=== PATIENT | male | born 1960 | race Caucasian/White ===

== ENCOUNTER 2022-02-14 08:55 | Outpatient (CLI) | payer MEDICARE, SELFPAY ==
--- NOTE | ~2022-02-14 | PE_ITS ---
EXAMINATION: PET skull to mid thigh DATE: 02/14/2022 10:57 INDICATION: Solitary nodule of lung. TECHNIQUE: Blood glucose level was 107 mg/dL. 11.286 mCi of 18-fluorodeoxyglucose (18-FDG) was admini stered i.v. Low dose computed tomography (CT) images were acquired from the base of the brain to the proximal thighs for attenuation correction and anatomic localization. Automated exposure control was employed. Dose-length product (DLP) was 1259 mGy-cm. Positron emission tomography (PET) images were a cquired in the same distribution. COMPARISON: None FINDINGS: Head/neck: There is increased activity in the oral cavity, pharynx, glottis, and major salivary gland s without abnormal CT correlate, likely physiologic. There are no pathologically enlarged lymph nodes . There is increased activity in bone marrow. Chest: There is mild atelectasis bilaterally. There is mild scarring at right lung base without incre ased activity. There are changes of wedge resection in superior segment right lower lobe. Calcified p ulmonary nodules and calcified hilar and mediastinal lymph nodes are consistent with old adenomatous disease. No pleural effusion. The heart size is normal. No pericardial effusion. There are old healed left rib fractures. There is increased activity in bone marrow. Abdomen/pelvis/proximal thighs: The liver and spleen are normal. There are changes of cholecystectomy . The pancreas, adrenal glands, and kidneys are normal. There is prominent fat in the inguinal canals that may be hernias. There are no dilated loops of bowel. There are no pathologically enlarged lymph nodes. There is no free intraperitoneal fluid. There is increased activity in bone marrow. IMPRESSION: 1. No specific evidence of malignancy. 2. Diffusely increased activity in bone marrow without abnormal CT correlate, likely bone marrow stim ulation. Reviewed, dictated and finalized at location A. OMINIUM PROPERTY MANAGER IMPRESSION: 1. No specific evidence of malignancy. 2. Diffusely increased activity in bone marrow without abnormal CT correlate, mike schroederely bone marrow stimulation.
[2022-02-14 10:03] LABS: Glucose Point of Care 107 mg/dl (65-105)
== END 2022-02-14 08:56 | disposition home or self-care (01) ==
PROVIDERS: PCP Internal Medicine; Visit Provider Nurse Practitioner
DX: R91.1 Solitary pulmonary nodule (principal)
CPT/HCPCS: 78815; A9552

== ENCOUNTER 2022-03-15 16:58 | Outpatient (CLI) | payer MEDICARE, SELFPAY ==
[2022-03-15 18:20] LABS: Basophils Percent Auto 0.7 % (0.2-1.2); Eosinophils Absolute Auto 0.1 K/mm3 (0-0.3); Eosinophils Percent Auto 1.6 % (0-4.4); Hematocrit 43.7 % (42.0-52.0); Hemoglobin 13.7 g/dL (14.0-18.0); Immature Granulocyte Absolute 0.04 K/mm3 (0.00-0.031); Immature Granulocyte Percent A 0.7 % (0-0.5); Lymphocytes Absolute Auto 1.81 K/mm3 (0.9-3.2); Lymphocytes Percent Auto 29.6 % (18.3-44.2); Mean Corpuscular HGB Conc 31.4 g/dl (32-36); Mean Corpuscular Hemoglobin 28.8 pg (26-34); Mean Platelet Volume 9.9 fl (7.4-10.4); Monocytes Absolute Auto 0.7 K/mm3 (0.1-0.6); Neutrophils Absolute Auto 3.5 K/mm3 (1.3-6.7); Neutrophils Percent Auto 56.4 % (45.5-73.1); Platelet Count Result 342 k/mm3 (150-375); Red Blood Count 4.75 M/mm3 (4.6-6.20); Red Cell Distribution Width 14.2 % (11.5-14.5); White Blood Count 6.1 K/mm3 (4.5-10.0)
[2022-03-15 18:35] LABS: Alanine Aminotransferase 33 U/L (6-50); Albumin Level 3.8 g/dL (3.5-5.1); Alkaline Phosphatase 72 U/L (38-126); Anion Gap 6 mmol/L (8-16); Aspartate Amino Transferase 26 U/L (17-59); Bilirubin,Total 0.5 mg/dL (0.2-1.3); Blood Urea Nitrogen 16 mg/dL (9-20); CRP 0.6 mg/dL (<1.0); Calcium 8.9 mg/dL (8.4-10.2); Carbon Dioxide 28 mmol/L (22-30); Chloride 106 mmol/L (98-107); Estimated Glomerular Filt Rate > 60; Glucose 71 mg/dL (65-110); Potassium 4.3 mmol/L (3.4-5.0); Sodium 140 mmol/L (137-145)
== END 2022-03-15 16:59 | disposition home or self-care (01) ==
PROVIDERS: PCP Internal Medicine; Visit Provider Internal Medicine Hematology & Oncology
DX: R89.8 Other abnormal findings in specimens from other organs, systems and tissues (principal)
CPT/HCPCS: 36415; 80053; 85025; 86140; 88184; 88185

== ENCOUNTER 2022-07-21 11:09 | Outpatient (CLI) | payer MEDICARE, SELFPAY ==
[2022-07-21 11:28] LABS: Basophils Percent Auto 0.8 % (0.2-1.2); Eosinophils Absolute Auto 0.1 K/mm3 (0-0.3); Eosinophils Percent Auto 1.9 % (0-4.4); Hemoglobin 13.2 g/dL (14.0-18.0); Immature Granulocyte Absolute 0.01 K/mm3 (0.00-0.031); Immature Granulocyte Percent A 0.2 % (0-0.5); Lymphocytes Absolute Auto 1.17 K/mm3 (0.9-3.2); Lymphocytes Percent Auto 22.5 % (18.3-44.2); Mean Corpuscular HGB Conc 32.2 g/dl (32-36); Mean Corpuscular Hemoglobin 29.3 pg (26-34); Mean Corpuscular Volume 91.1 fl (80-100); Monocytes Absolute Auto 0.4 K/mm3 (0.1-0.6); Monocytes Percent Auto 8.3 % (2.6-8.5); Neutrophils Absolute Auto 3.5 K/mm3 (1.3-6.7); Neutrophils Percent Auto 66.3 % (45.5-73.1); Platelet Count Result 278 k/mm3 (150-375); Red Cell Distribution Width 13.7 % (11.5-14.5); White Blood Count 5.2 K/mm3 (4.5-10.0)
[2022-07-21 12:19] LABS: Alanine Aminotransferase 26 U/L (6-50); Alkaline Phosphatase 76 U/L (38-126); Anion Gap 4 mmol/L (8-16); Aspartate Amino Transferase 22 U/L (17-59); Bilirubin,Total 0.5 mg/dL (0.2-1.3); Blood Urea Nitrogen 15 mg/dL (9-20); Calcium 8.5 mg/dL (8.4-10.2); Carbon Dioxide 29 mmol/L (22-30); Chloride 104 mmol/L (98-107); Estimated Glomerular Filt Rate > 60; Glucose 95 mg/dL (65-110); Potassium 4.4 mmol/L (3.4-5.0); Sodium 137 mmol/L (137-145)
[2022-07-27 16:12] LABS: BCR/abl Prior Result Not Given
[2022-07-27 16:57] LABS: BCR/abl P190 Not Detected; BCR/abl P210 Not Detected
[2022-07-27 16:58] LABS: BCR/abl P190 Chg YES; BCR/abl P210 Chg YES
== END 2022-07-21 11:10 | disposition home or self-care (01) ==
LOC: ANHLAB 11:11
PROVIDERS: PCP Internal Medicine; Visit Provider Internal Medicine Hematology & Oncology
DX: R89.8 Other abnormal findings in specimens from other organs, systems and tissues (principal)
CPT/HCPCS: 36415; 80053; 81206; 81207; 85025

== ENCOUNTER 2022-08-04 09:10 | Outpatient (CLI) | payer MEDICARE, SELFPAY ==
--- NOTE | ~2022-08-04 | CT_ITS ---
CT Scan of the Chest without Contrast: Clinical Indication: Solitary pulmonary nodule Technique: Contiguous sections were acquired throughout the chest without intravenous contrast. Dose reduction technique was used on this scan by utilizing automated exposure control and iterative recon struction technique. The dose-length product (DLP) was 569.87 mGy-cm. Findings: There is no evidence of any significant mediastinal, hilar or axillary lymphadenopathy. The mediastin al soft tissues appear normal. There is no evidence of pleural or pericardial effusion. There is no evidence of prior partial right lung resection with postoperative scarring. No suspicious pulmonary nodules identified. Images through the upper abdomen reveal no abnormalities. Chronic left rib fracture full result prese nt. Impression: No suspicious pulmonary nodule. Postoperative change in the right lung. Reviewed, dictated and finalized at location . Impression: No suspicious pulmonary nodule. Postoperative change in the right lung.
== END 2022-08-04 09:11 | disposition home or self-care (01) ==
PROVIDERS: PCP Internal Medicine; Visit Provider Nurse Practitioner
DX: R91.1 Solitary pulmonary nodule (principal); Z98.890 Other specified postprocedural states
CPT/HCPCS: 71250

== ENCOUNTER 2023-01-19 10:04 | Outpatient (CLI) | payer MEDICARE, SELFPAY ==
[2023-01-19 10:16] LABS: Basophils Absolute Auto 0.1 K/mm3 (0.0-0.1); Basophils Percent Auto 0.9 % (0.2-1.2); Eosinophils Absolute Auto 0.1 K/mm3 (0-0.3); Eosinophils Percent Auto 1.2 % (0-4.4); Hematocrit 41.9 % (42.0-52.0); Hemoglobin 13.5 g/dL (14.0-18.0); Immature Granulocyte Absolute 0.02 K/mm3 (0.00-0.031); Immature Granulocyte Percent A 0.3 % (0-0.5); Lymphocytes Percent Auto 20.9 % (18.3-44.2); Mean Corpuscular HGB Conc 32.2 g/dl (32-36); Mean Corpuscular Hemoglobin 29.7 pg (26-34); Mean Corpuscular Volume 92.3 fl (80-100); Mean Platelet Volume 9.7 fl (7.4-10.4); Monocytes Absolute Auto 0.4 K/mm3 (0.1-0.6); Monocytes Percent Auto 7.7 % (2.6-8.5); Platelet Count Result 299 k/mm3 (150-375); Red Blood Count 4.54 M/mm3 (4.6-6.20); Red Cell Distribution Width 13.7 % (11.5-14.5); White Blood Count 5.7 K/mm3 (4.5-10.0)
[2023-01-19 15:15] LABS: Iron 45 ug/dL (49-181)
[2023-01-19 15:20] LABS: Alanine Aminotransferase 25 U/L (6-50); Albumin Level 3.9 g/dL (3.5-5.1); Alkaline Phosphatase 79 U/L (38-126); Anion Gap 7 mmol/L (8-16); Aspartate Amino Transferase 23 U/L (17-59); Bilirubin,Total 0.5 mg/dL (0.2-1.3); Blood Urea Nitrogen 15 mg/dL (9-20); Calcium 8.8 mg/dL (8.4-10.2); Carbon Dioxide 26 mmol/L (22-30); Chloride 107 mmol/L (98-107); Estimated Glomerular Filt Rate > 60; Glucose 109 mg/dL (65-110); Potassium 4.5 mmol/L (3.4-5.0); Sodium 140 mmol/L (137-145)
[2023-01-19 15:41] LABS: Percent Iron Saturation 14 % (20-50)
[2023-01-19 16:28] LABS: Folic Acid 8.2 ng/mL (2.76->20)
== END 2023-01-19 10:05 | disposition home or self-care (01) ==
LOC: ANHLAB 10:07
PROVIDERS: PCP Internal Medicine; Visit Provider Internal Medicine Hematology & Oncology
DX: D64.9 Anemia, unspecified (principal)
CPT/HCPCS: 36415; 80053; 82607; 82728; 82746; 83540; 83550; 85025

== ENCOUNTER 2023-02-06 08:28 | Outpatient (CLI) | payer MEDICARE, SELFPAY ==
--- NOTE | ~2023-02-06 | CT_ITS ---
EXAMINATION: CT diagnostic chest w con DATE: 02/06/2023 09:05 INDICATION: Lung nodule. TECHNIQUE: Computed tomography (CT) of the chest was performed without intravenous contrast. The dose -length product was 957.98 mGy-cm. Automated exposure control and iterative reconstruction technique were employed. COMPARISON: CT dated 08/04/2022 FINDINGS: Heart size normal. No significant pleural or pericardial effusion. No thoracic lymphadenopa thy. Fatty infiltration of the liver. There are calcified granulomas of the spleen. Status post donna cystectomy. Status post partial right lung resection. There is scarring in the right lower thorax. Sm all left fissural nodule measuring 6 mm there are multiple chronic left rib fractures. Mild thoracic spondylosis., likely benign fissural lymph node. IMPRESSION: 1. Stable likely benign 6 mm left fissural nodule. Follow-up low dose CT chest in 12 months recommend ed. Reviewed, dictated and finalized at location L. RNAL AUDIT DIRECTOR IMPRESSION: 1. Stable likely benign 6 mm left fissural nodule. Follow-up low dose CT chest in 12 months recommended.
== END 2023-02-06 08:29 | disposition home or self-care (01) ==
PROVIDERS: PCP Internal Medicine; Visit Provider Internal Medicine Hematology & Oncology
DX: R91.1 Solitary pulmonary nodule (principal)
CPT/HCPCS: 71260; Q9967

== ENCOUNTER 2023-07-27 11:06 | Outpatient (CLI) | payer MEDICARE, SELFPAY ==
[2023-07-27 11:37] LABS: Basophils Percent Auto 0.4 % (0.2-1.2); Eosinophils Absolute Auto 0.1 K/mm3 (0-0.3); Eosinophils Percent Auto 1.8 % (0-4.4); Hematocrit 42.1 % (42.0-52.0); Hemoglobin 13.5 g/dL (14.0-18.0); Immature Granulocyte Absolute 0.02 K/mm3 (0.00-0.031); Immature Granulocyte Percent A 0.4 % (0-0.5); Lymphocytes Percent Auto 23.2 % (18.3-44.2); Mean Corpuscular HGB Conc 32.1 g/dl (32-36); Mean Corpuscular Hemoglobin 29.7 pg (26-34); Mean Corpuscular Volume 92.5 fl (80-100); Mean Platelet Volume 9.8 fl (7.4-10.4); Monocytes Absolute Auto 0.5 K/mm3 (0.1-0.6); Monocytes Percent Auto 9.1 % (2.6-8.5); Neutrophils Absolute Auto 3.7 K/mm3 (1.3-6.7); Neutrophils Percent Auto 65.1 % (45.5-73.1); Platelet Count Result 273 k/mm3 (150-375); Red Blood Count 4.55 M/mm3 (4.6-6.20); Red Cell Distribution Width 14.4 % (11.5-14.5); White Blood Count 5.6 K/mm3 (4.5-10.0)
[2023-07-27 16:30] LABS: Iron 97 ug/dL (49-181)
[2023-07-27 16:33] LABS: Alanine Aminotransferase 25 U/L (6-50); Albumin Level 4.2 g/dL (3.5-5.1); Alkaline Phosphatase 70 U/L (38-126); Anion Gap 8 mmol/L (4-12); Aspartate Amino Transferase 22 U/L (17-59); Bilirubin,Total 0.7 mg/dL (0.2-1.3); Blood Urea Nitrogen 23 mg/dL (9-20); Calcium 9.3 mg/dL (8.4-10.2); Carbon Dioxide 25 mmol/L (22-30); Chloride 108 mmol/L (98-107); Estimated Glomerular Filt Rate > 60; Glucose 85 mg/dL (65-110); Potassium 4.6 mmol/L (3.4-5.0); Sodium 141 mmol/L (137-145)
[2023-07-27 16:40] LABS: Percent Iron Saturation 32 % (20-50)
[2023-07-27 17:41] LABS: Folic Acid 11.7 ng/mL (2.76->20)
== END 2023-07-27 11:07 | disposition home or self-care (01) ==
LOC: ANHLAB 11:06
PROVIDERS: PCP Internal Medicine; Visit Provider Internal Medicine Hematology & Oncology
DX: D64.9 Anemia, unspecified (principal)
CPT/HCPCS: 36415; 80053; 82607; 82728; 82746; 83540; 83550; 85025

== ENCOUNTER 2024-01-21 07:51 | Outpatient (CLI) | payer MEDICARE, OTHER, SELFPAY ==
--- NOTE | ~2024-01-21 | CT_ITS ---
Clinical Indication: Lung nodule CT Scan of the Chest with Contrast: Technique: Contiguous sections were acquired throughout the chest after intravenous administration of 75 cc of Omnipaque 350. Dose reduction technique was used on this scan by utilizing automated exposu re control and iterative reconstruction technique. The dose-length product (DLP) was 881.38 mGy-cm. COMPARISON: 02/06/2023 Findings: There is no evidence of any significant mediastinal, hilar or axillary lymphadenopathy. There is no f illing defect in the pulmonary arterial tree to suggest pulmonary embolus. There is no evidence of ao rtic dissection or aneurysm. There is no evidence of pleural or pericardial effusion. Status post probable prior right lower lobectomy with mild post surgical distortion the right lung. S table 7 mm nodule along the left fissure (axial image 73). There is focal patchy airspace disease in the left upper lobe, suggestive of focal pneumonia (axial image 4-50 for example). Images through the upper abdomen reveal no abnormalities. Impression: Patchy airspace consolidation left upper lobe, suspicious for focal pneumonia. Short-term follow-up e xam after interval therapy recommended to assure resolution. Stable 7 mm left fissural nodule. Status post prior right lower lobectomy with probable postsurgical distortion the right lung, unchang ed. Reviewed, dictated and finalized at location M. TESTER Impression: Patchy airspace consolidation left upper lobe, suspicious for focal pneumonia. Short-term follow-up exam after interval therapy recommended to assure resoluti on. Stable 7 mm left fissural nodule. Status post prior right lower lobectomy with probable postsurgical distortion t he right lung, unchanged.
[2024-01-21 08:31] LABS: Estimated Glomerular Filt Rate > 60
== END 2024-01-21 07:52 | disposition home or self-care (01) ==
PROVIDERS: PCP Internal Medicine; Visit Provider Internal Medicine Hematology & Oncology
DX: R91.1 Solitary pulmonary nodule (principal); Z90.2 Acquired absence of lung [part of]
CPT/HCPCS: 36415; 71260; 82607; 82728; 82746; 83540; 83550; 85025; Q9967

== ENCOUNTER 2024-01-21 08:47 | Outpatient (CLI) | payer MEDICARE, OTHER, SELFPAY ==
[2024-01-21 09:22] LABS: Basophils Percent Auto 0.4 % (0.2-1.2); Eosinophils Absolute Auto 0.1 K/mm3 (0-0.3); Eosinophils Percent Auto 1.6 % (0-4.4); Hemoglobin 13.2 g/dL (14.0-18.0); Immature Granulocyte Absolute 0.03 K/mm3 (0.00-0.031); Immature Granulocyte Percent A 0.4 % (0-0.5); Lymphocytes Percent Auto 10.3 % (18.3-44.2); Mean Corpuscular HGB Conc 32.2 g/dl (32-36); Mean Corpuscular Hemoglobin 30.1 pg (26-34); Mean Corpuscular Volume 93.4 fl (80-100); Mean Platelet Volume 9.7 fl (7.4-10.4); Monocytes Absolute Auto 0.7 K/mm3 (0.1-0.6); Monocytes Percent Auto 9.7 % (2.6-8.5); Neutrophils Absolute Auto 5.3 K/mm3 (1.3-6.7); Neutrophils Percent Auto 77.6 % (45.5-73.1); Platelet Count Result 253 k/mm3 (150-375); Red Blood Count 4.39 M/mm3 (4.6-6.20); Red Cell Distribution Width 14.2 % (11.5-14.5); White Blood Count 6.8 K/mm3 (4.5-10.0)
[2024-01-21 13:23] LABS: Iron 76 ug/dL (49-181)
[2024-01-21 13:33] LABS: Percent Iron Saturation 24 % (20-50)
== END 2024-01-21 08:48 | disposition home or self-care (01) ==
PROVIDERS: PCP Internal Medicine; Visit Provider Internal Medicine Hematology & Oncology
DX: D64.9 Anemia, unspecified (principal)
CPT/HCPCS: 36415; 82607; 82728; 82746; 83540; 83550; 85025

== ENCOUNTER 2024-07-30 13:56 | Outpatient (CLI) | payer MEDICARE, OTHER, SELFPAY ==
[2024-07-30 14:16] LABS: Basophils Percent Auto 0.6 % (0.2-1.2); Eosinophils Absolute Auto 0.1 K/mm3 (0-0.3); Eosinophils Percent Auto 1.7 % (0-4.4); Hematocrit 43.6 % (42.0-52.0); Hemoglobin 13.9 g/dL (14.0-18.0); Immature Granulocyte Absolute 0.02 K/mm3 (0.00-0.031); Immature Granulocyte Percent A 0.3 % (0-0.5); Lymphocytes Absolute Auto 1.34 K/mm3 (0.9-3.2); Lymphocytes Percent Auto 19.1 % (18.3-44.2); Mean Corpuscular HGB Conc 31.9 g/dl (32-36); Mean Corpuscular Hemoglobin 30.2 pg (26-34); Mean Corpuscular Volume 94.8 fl (80-100); Mean Platelet Volume 10.9 fl (7.4-10.4); Monocytes Absolute Auto 0.6 K/mm3 (0.1-0.6); Monocytes Percent Auto 8.3 % (2.6-8.5); Neutrophils Absolute Auto 4.9 K/mm3 (1.3-6.7); Platelet Count Result 248 k/mm3 (150-375); Red Cell Distribution Width 13.8 % (11.5-14.5)
--- OUTSIDE RECORDS SUMMARY | 2024-07-30 15:43 | XMS_ITS | CONTINUITY OF CARE DOCUMENT ---
Author Name chichibernardino, chichibernardino Address Unknown Organization [facility] Address [address] [place] [address] Phone [phone] Care Team Providers Care Veneer Jointer Returner Name Role Phone Gracia Harris MD Unavailable Grady Snow MD Unavailable Grady Snow MD Unavailable [phone] PROBLEMS Condition Status Date Provider Notes Respiratory infection active ULICES Coyne Tourette's disorder active MAX DIAZ MD Acute upper respiratory infe ctions of unspecified site active MAX DIAZ MD ENCOUNTERS Date Type Provider Location Encounter Diag nosis - In-person encounter Office Visit MAX DIAZ MD [facility] - In-person encounter Office Visit [facility] DIA[facility] - In-person encounter Office Visit [facility] DIAZ [facility] - In-person encounter Office Visit MAX DIAZ MD [facility] - In-person encounter Office Visit MAX DIAZ [facility] - In-person encounter Office Visit MAX DIAZ MD [facility] - In-person encounter Office Visit MAX DIAZ MD [facility] In-person encounter Office Visit MAX DIAZ MD [facility] - In-person encounter Office Visit MAX DIAZ MD [facility] - In-person encounter Office Visit MAX DIAZ MD [facility] In-person encounter Office Visit MAX DIAZ MD [facility] - In-person encounter Office Visit MAX DIAZ MD [facility] - In-person encounter Office Visit MAX DIAZ MD [facility] - In-person encounter Office Visit MAX DIAZ MD [facility] - In-person encounter Office Visit [facility] D[facility] - In-person encounter Office Visit [facility] - In-person encounter Office Visit [facility] - In-person encounter Office Visit [facility] D[facility] - In-person encounter Office Visit [facility] DIA[facility] - In-person encounter Office Visit [facility] DIA[facility] - In-person encounter Office Visit [facility] D[facility] - In-person encounter Office Visit [facility] - In-person encounter Office Visit [facility] D[facility] - In-person encounter Office Visit [facility] - In-person encounter Office Visit [facility] D[facility] - In-person encounter Office Visit [facility] - In-person encounter Office Visit [facility] - In-person encounter Office Visit [facility] - In-person encounter Office Visit [facility] D[facility] - In-person encounter Office Visit MAX DIAZ [facility] - In-person encounter Office Visit MAX DIAZ MD [facility] - In-person encounter Office Visit MAX DIAZ MD [facility] - In-person encounter Office Visit MAX DIAZ MD [facility] In-person encounter Office Visit MAX DIAZ MD [facility] - In-person encounter Office Visit MAX DIAZ MD [facility] - In-person encounter Office Visit MAX DIAZ MD [facility] - In-person encounter Office Visit [facility] - In-person encounter Office Visit [facility] - In-person encounter Office Visit [facility] - In-person encounter Office Visit MAX DIAZ MD [facility] - In-person encounter Office Visit [facility] D[facility] - In-person encounter Office Visit [facility] - In-person encounter Office Visit [facility] D[facility] - In-person encounter Office Visit [facility] D[facility] - In-person encounter Office Visit [facility] - In-person encounter Office Visit [facility] DIA[facility] - In-person encounter Office Visit [facility] - In-person encounter Office Visit [facility]IAZ MD [facility] - In-person encounter Office Visit MAX DIAZ MD [facility] - In-person encounter Office Visit MAX DIAZ MD [facility] Acute upper respiratory infections of unspecified site - In-person encounter Office Visit MAX DIAZ MD [facility] - In-person encounter Office Visit MAX DIAZ MD [facility] Tourette's disorder - In-person encounter Office Visit MAX DIAZ MD [facility] - In-person encounter Office Visit [facility] - In-person encounter Office Visit [facility] - In-person encounter Office Visit [facility] - In-person encounter Office Visit [facility] - In-person encounter Office Visit [facility] - In-person encounter Office Visit [facility] - In-person encounter Office Visit [facility] - In-person encounter Office Visit Cally Cass[facility] - In-person encounter Office Visit [facility] - In-person encounter Office Visit [facility] - In-person encounter Office Visit [facility] - In-person encounter Office Visit [facility] [place] [facility] - In-person encounter Office Visit Ren[facility] In-person encounter Office Visit [facility] [place] [facility] - In-person encounter Office Visit [place] [facility] - In-person encounter Office Visit [facility] - In-person encounter Office Visit [facility] - In-person encounter Office Visit [facility] - In-person encounter Office [facility] - In-person encounter Office Visit [facility] - In-person encounter Office Visit [facility] - In-person encounter Office Visit [facility] - In-person encounter Office Visit [facility] - In-person encounter Office Visit [facility] - In-person encounter Office Visit [facility] - In-person encounter Office Visit [facility] - In-person encounter Office Visit [facility] - In-person encounter Office Visit [facility] - In-person encounter Office [facility] - In-person encounter Office [facility] - In-person encounter Office [facility] - [facility] - In-[facility] - In-person encounter Office Visit [facility] Office RESULTS Date Observation Value Provider Reference Range Interpretation Location red blood cell distribution width, size density 50.3 fL [facility] - 5 immature granulocytes, percentage of total cells, blood 0.3 % [facility] - 5 nucleated red blood cells as percent of blood leukocytes 0.0 % [facility] - 5 red blood cell (erythrocyte) count, per high power field 0.0 10*3/UL [facility] - 5 eosinophils as percent of blood leukocytes 3.3 % [facility] - 5 neutrophils as percent of blood leukocytes 77.7 % [facility] - 5 Absolute Neutrophils 7.1 CELLS/UL [facility] 1.5 - 7.8 5 basophils as percent of blood leukocytes 0.5 % [facility] - 5 Absolute Basophils 0.1 CELLS/UL [facility] 0.0 - 0.2 5 monocytes as percent of blood leukocytes 7.2 % [facility] - 5 Absolute Monocytes 0.7 CELLS/UL [facility] 0.2 - 1.0 5 lymphocytes as percent of blood leukocytes 11.0 % [facility] - 5 Absolute Lymphocytes 1.0 CELLS/UL [facility] 0.9 - 3.9 5 mean platelet volume 10.5 (?) [facility] - 5 platelet count 323.0 THOUSAND/ UL [facility] 100.0 - 400.0 mean corpuscular hemoglobin concentration, RBC 30.0 G/DL [facility] 31.0 - 38.0 Low mean corpuscular hemoglobin, RBC 26.8 pg [facility] 25.0 - 35.0 mean corpuscular volume, RBC 89.5 fL [facility] 75.0 - 100.0 hematocrit, blood 41.7 % [facility] 35.0 - 55.0 hemoglobin, blood 12.5 g/dL [facility] 11.5 - 16.5 erythrocyte count, whole blood 4.7 MILLION/U L [facility] 3.5 - 5.5 hemoglobin A1C, blood, as % of total hemoglobin 5.6 % [facility] 4.0 - 6.0 very low density lipoproteins 27.8 mg/dL [facility] 5.0 - 40.0 LDL/HDL (low-density lipoprotein/high-den sity lipoprotein) ratio 2.6 RATIO [facility] - lipoprotein, beta, serum, point, quantitative, calculated 112.2 (?) [facility] 0.0 - 100.0 High HDL cholesterol, serum 44.0 mg/dL [facility] 35.0 - 55.0 5 cholesterol, serum 184.0 mg/dL [facility] 0.0 - 200.0 triglyceride, serum, fasting 139.0 mg/dL [facility] 0.0 - 150.0 thyroid stimulating hormone, serum 2.020 ?IU/ML [facility] 0.270 - 4.200 5 anion gap, serum 13.7 [facility] - 5 albumin/globulin ratio, serum 2.6 g/dL [facility] 1.1 - 2.5 High 5 globulin, serum 2.6 [facility] 2.3 - 3.8 5 urea nitrogen/creatinine ratio, serum 12.5 [facility] - Estimated Glomerular Filtration Rate (calc) 106.3 (?) [facility] 59.0 - 5 chloride, serum 105.3 mmol/L [facility] 98.0 - 107.0 5 potassium, serum 4.6 mmol/L [facility] 3.5 - 5.1 5 sodium, serum 143.0 mmol/L [facility] 136.0 - 145.0 creatinine, serum 0.8 mg/dL [facility] 0.7 - 1.2 carbon dioxide, venous blood 24.0 mmol/L [facility] 22.0 - 29.0 albumin, serum 4.2 g/dL [facility] 3.5 - 5.2 calcium, serum 9.3 mg/dL [facility] 8.6 - 10.2 aspartate aminotransferase (SGOT), serum 16.0 1/L [facility] 0.0 - 40.0 alkaline phosphatase, serum 91.0 1/L [facility] 40.0 - 130.0 alanine aminotransferase (SGPT), serum 20.0 1/L [facility] 0.0 - 41.0 protein, total, serum 6.8 g/dL [facility] 6.6 - 8.7 bilirubin, serum, total 0.5 mg/dL [facility] 0.0 - 1.2 urea nitrogen, blood 10.0 mg/dL [facility] 6.0 - 20.0 blood glucose, random 94.0 mg/dL [facility] 74.0 - 99.0 HISTORY OF MEDICATION USE Medication Status Instructions Dates Provider Indications Com ments ABILIFY 10 MG ORAL TABLET active ONE TABLET IN THE EVENING MAX DIAZ MD CEFDINIR CAPSULE completed 325 MG TWICE DAILY - MAX DIAZ MD PREDNISONE 20 MG ORAL TABLET completed TAKE DIRECTED - MAX DIAZ MD PROAIR HFA 108 (90 Base) MCG/ACT INHALATION AEROSOL SOLUTION completed TWO PUFFS EVERY 6 TO 8 HOURS - MAX DIAZ MD LISINOPRIL 20 MG ORAL TABLET active ONE TABLET TWICE DAILY MAX DIAZ MD ADVAIR DISKUS 250-50 MCG/DOSE INHALATION AEROSOL POWDER BREATH ACTIVATED completed 1 puff twice daily - MAX DIAZ MD LEVAQUIN 500 MG ORAL TABLET completed one tab. daily - MAX DIAZ MD LEVAQUIN 500 MG ORAL TABLET completed one tablet daily - MAX DIAZ MD CLONIDINE HCL 0.1 MG ORAL TABLET active ONE TABLET THREE TIMES DAILY MAX DIAZ MD ABILIFY 10 MG ORAL TABLET completed ONE TABLET IN THE EVENING - MAX DIAZ MD ALBUTEROL SULFATE (2.5 MG/3ML) 0.083% INHALATION NEBULIZATION SOLUTION active 2 PUFFS FOUR TIMES DAILY MAX DIAZ MD PRILOSEC OTC 20 MG ORAL TABLET DELAYED RELEASE active ONE TABLET DAILY MAX DIAZ MD ASPIRIN 81 MG ORAL TABLET active ONE TAB. DAILY MAX DIAZ MD PAROXETINE HCL 40 MG ORAL TABLET active take one pill a day K[facility] TABLET EXTENDED RELEASE 12 HOUR completed ONE TABLET TWICE DAILY - MAX DIAZ MD NAPROXEN 250 MG ORAL TABLET completed ONE TABLET DAILY - MAX DIAZ MD SYMBICORT 160-4.5 MCG/ACT INHALATION AEROSOL completed 1 PUFF TWICE DAILY - MAX DIAZ MD ZITHROMAX Z-ELIOT 250 MG ORAL TABLET completed take as directed - MAX DIAZ MD SINGULAIR 10 MG ORAL TABLET active one tab. daily Patrick Alejandro RN INSURANCE PROVIDERS Payer name Policy type / Coverage type [place] red green party ID [facility] [id number] [place] MEDIC[place] Medicare [id number] TREATMENT PLAN Date Name Gram Stain w/Sputum Cult Rflx LIPID PANEL TSH, 3RD GENERATION W/REFLEX TO FT4 HEMOGLOBIN A1c COMPREHENSIVE METABO LIC PANEL W/EGFR CBC (INCLUDES DIFF/P LT) HISTORY OF PROCEDURES Procedure Date Procedure Name Provider Procedure Notes S tatus ePrescribe - Check t his box if eRx is used MAX DIAZ MD completed ePrescribe - Check t his box if eRx is used MAX DIAZ MD completed
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
--- OUTSIDE RECORDS SUMMARY | 2024-07-30 15:43 | XMS_ITS | Data Portability ---
Author Organization [facility], Main Office Address [address] [place] [id number] Care Team Providers Care Arcade Technician Name Role Phone BRIGETTE SMITH Primary Care Provider Assessment Encounter Date Assessment Date Assessment LastModified by Organization Details LastModified Time 02/11/2024 02/11/2024 Assessment: Rhinitis Severe OSAHS, AHI = 35 Severe COPD Left fissural pulm nodule Plan: The following were reviewed and explained to the patient: primary care/referral note PET/CT 02/14/22 no evidence of malignancy Chest CT 05/12/19 resolved right lung base infiltrates Chest CT 01/27/22 9.5 mm RUL density Chest CT 08/04/[address] 02/06/23 6 mm left fissural nodule Chest CT 01/21/24 7 mm left fissural nodule PFT 02/25/21 FEV1 1.76 L (48%), BD -40 mL = -2%, TLC 8.01 L (117%), RV 4.98 L (201%), DLCO 73%, DLCO/VA 145% [facility] home sleep study 06/07/18 AHI = 35 [facility] titration sleep study 06/28/18 sleep onset = 42 minutes, REM AHI = 106 minutes, Respironics medium wide DreamWear nasal mask @ 15 cmH2O, PLMI = 4 Cough/Dyspnea workup will be done as follows: Respiratory allergen panel for [facility] Serum IgE Serum total IgG, IgG1, IgG2, IgG3, IgG4 [id number] n phenotype and level TB stimulated gamma interferon B-type natriuretic peptide (BNP) Eosinophil count Complete pulmonary function testing (PFT) Advised to continue not to smoke. Continue Albuterol HFA as needed. Continue Breo Ellipta 200/25 mcg 1 inhalation daily. Gargle after use. The patient does not know how to accurately administer the inhalers. Today, the patient was shown how to take these medications. The proper technique for delivering these medications was instructed. The patient expressed a clear understanding and demonstrated back how to use these medications. Without the proper technique, the patient will not reap the benefits of these medications as the contents will not reach the lower airways as intended to be. Adherence to therapy is advocated. Nonadherence may lead to treatment failure, further progression of the condition, and other complications. Hospitals admissions are often the result of individuals not taking prescription medications accurately. Alternatively, greater adherence to medication regimens have shown to lower rates of hospitalization and decrease total medical costs in patients with chronic medical conditions. PAP compliance downloaded and interpreted x 20 minutes. Data reviewed and explained to the patient. Average apnea/hypopnea index (AHI) is 2.1. Patient used PAP > 4 hours 96% of the time. PAP is set at 16 cmH2O. PAP will remain at 16 cmH2O. Keep ramp start at 5 cmH2O. Keep ramp duration at 20 minutes. Keep EPR off. Keep humidifier level at 7. Oxygen supplementation: none Patient is benefiting from PAP therapy. Encouraged patient to maintain PAP use more than 70% of the time. Statement of PAP use and benefits will be sent to the home care store. Educated the patient on problems and solutions associated with positive airway pressure (PAP) use. Difficulty tolerating pressure, mask leaks, intolerance of interface, nasal congestion, claustrophobic response, dry mouth, and unintentional mask removal during sleep were covered. Patient experiences nasal congestion. Patient will use nasal saline spray before starting PAP, use heated PAP humidifier, clean/air dry humidifier reservoir daily, use nasal steroid spray, use ipratropium bromide nasal spray if rhinitis/rhinorrhe a is present or obtain an oronasal/oral interface. Dry mouth is a normal occurrence for people who just start out on PAP therapy because they are not used to air blowing in to the throat to hold open. Dry mouth is exacerbated for people who wear nasal PAP mask and whose jaw drops open during sleep. Not only does this create a much less efficient therapy because of leakage, it also causes dry mouth. There are a couple solutions to help prevent this type of problem. A simple solution would be to wear a chinstrap which essentially holds the jaw in place. A second solution would be a switch to a full face mask which covers both the nose and mouth. Although this is another easy solution, using a full face mask for some could seem claustrophobic or confining. There is no silver bullet solution as no single mask is right for everybody. Sometimes it takes a bit of experimentation to find a PAP mask which best meets the patient's needs as well as fits comfortably. Another tactic is to use a humidifier on your PAP machine. Most new PAP machines have integrated humidifiers. Humidification is valdez when dealing with symptoms of dry mouth because the humidifier can supply both warm and room temperate air. Even a small amount of humidity in the airflow will help nasal passages to stay hydrated. If a person is using both a full face mask and a PAP machine with a heated humidifier and is still experiencing dry mouth, an ill-fitted PAP mask might be causing the problem. Leakage can be caused by a mask that is to large or small, the wrong style mask, the cushion is degraded or simply because the mask's straps aren't adjusted correctly. If leakage occurs, dry air from the room can leak in while humidification escapes. The result is reduced humidification within the circuit and resulting in dry throat and mouth. Finally, beyond factors involving the PAP machine and mask, dry mouth can also be caused or worsened by dehydration. The general recommendation to during eight 8 oz. glasses of water a day might be too little for many people. When people drink large amounts of coffee or other caffeine beverages, or sweat a lot during the day, making sure to rehydrate is an important part of PAP therapy. ResMed Air Sense 11 auto set unit with heated humidifier, supplies at 16 cmH2O ordered. Further titration will be based on clinical response. Provided the patient with a list of local home care stores where positive airway pressure (PAP) units, accoutrement, and services are available. Home care store selection is based on patient's insurance carrier. Patient will setup an appointment with [facility] for supplies and pressure adjustments. A major predictor of success with use of PAP is follow-up with both the respiratory supplier and the treating physician. The respiratory supplier optimally will follow-up within two weeks after starting use while the treating physician optimally will follow-up within 90 days after starting therapy to assess adherence and effectiveness of treatment. The download results can show the treating physician information about adherence to treatment, residual AHI while on treatment and presence of large mask leakage. This information is especially helpful if the patient has residual sleepiness despite treatment. General information on sleep disordered breathing, evaluation of sleep disordered breathing, treatment with PAP therapy, and living with PAP therapy were covered. We discussed with the patient the impact of weight on: Sleep disordered breathing Hypertension Hypertriglyceridem ia GERD Fatty liver Thoracic spondylosis Right calcaneal spur Right pes planus We discussed with the patient the benefit of PAP therapy on: Sleep disordered breathing Rhinitis Hypertension GERD ED Educated the patient on sleep hygiene measures. Relaxing rituals to rest easy, understanding foods with positive and negative impact on sleep, creating a peaceful sleep environment, timing of exercise, using herbal sleep aids, and practicing sleep-friendly meditation were covered. To determine how much sleep is needed, the patient will assess where he falls on the spectrum, examine what lifestyle factors such as work schedules and stress are affecting the quality and quantity of sleep. In general, adults need 7-9 hours of sleep. Educated the patient regarding foods that promote sleep. These include but are not limited to cherries, bananas, toast, oatmeal, and warm milk. Educated the patient regarding foods and drinks to avoid before bedtime. These include but are not limited to aged cheese, chocolate, spicy foods, tomato-based sauces, soy, ginseng tea and processed meat. Advocated influenza vaccination annually and pneumonia vaccination GIOVANNI. Advocated weight loss through diet and exercise. Patient's ideal body weight according to height and gender is up to 185 lbs. Encouraged patient to adjust caloric intake to maintain/achieve ideal body weight, emphasizing on fruits, vegetables, whole grains, and fat-free or low-fat products. These include lean meats, poultry, fish, beans, eggs, and nuts and foods that are low in saturated fats, trans-fats, cholesterol, salt (sodium), and glycemic index. Stressed the importance of regular exercise up to the patient's capacity limits. In this case, we recommend 20 min daily walking, 2 days a week of resistance training. Patient to monitor BP daily and bring records to PCP for further management. Follow-up: 1 week after PFT Spent 60 minutes: 1. preparing to see the patient (eg, review of tests), 2. obtaining and/or reviewing separately obtained history, 3. performing a medically appropriate examination and evaluation, 4. counseling and educating the patient, 5. ordering medications and tests, 6. documenting clinical information in the electronic health record, 7. independently interpreting results, and 8. communicating results to the patient. Not available 02/11/2024 09:27:56 03/31/2024 03/31/2024 Assessment: Hypertension Rhinitis Severe OSAHS, AHI = 35 Severe COPD Left fissural pulm nodule Plan: The following were reviewed and explained to the patient: PET/CT 02/14/22 no evidence of malignancy Chest CT 05/12/19 resolved right lung base infiltrates Chest CT 01/27/22 9.5 mm RUL density Chest CT 08/04/[address] 02/06/23 6 mm left fissural nodule Chest CT 01/21/24 7 mm left fissural nodule PFT 02/25/21 FEV1 1.76 L (48%), BD -40 mL = -2%, TLC 8.01 L (117%), RV 4.98 L (201%), DLCO 73%, DLCO/VA 145% PFT 03/26/24 FEV1 1.57 L (44%), BD 30 mL = 2%, TLC 4.28 L (63%), RV 1.68 L (67%), DLCO 58%, DLCO/VA 128% [facility] home sleep study 06/07/18 AHI = 35 [facility] titration sleep study 06/28/18 sleep onset = 42 minutes, REM AHI = 106 minutes, Respironics medium wide DreamWear nasal mask @ 15 cmH2O, PLMI = 4 Lab data 02/11/24 allergic to dog and cat Advised to continue not to smoke. Continue Albuterol HFA as needed. Continue Breo Ellipta 200/25 mcg 1 inhalation daily. Gargle after use. The patient does not know how to accurately administer the inhalers. Today, the patient was shown how to take these medications. The proper technique for delivering these medications was instructed. The patient expressed a clear understanding and demonstrated back how to use these medications. Without the proper technique, the patient will not reap the benefits of these medications as the contents will not reach the lower airways as intended to be. Adherence to therapy is advocated. Nonadherence may lead to treatment failure, further progression of the condition, and other complications. Hospitals admissions are often the result of individuals not taking prescription medications accurately. Alternatively, greater adherence to medication regimens have shown to lower rates of hospitalization and decrease total medical costs in patients with chronic medical conditions. PAP compliance downloaded and interpreted x 20 minutes. Data reviewed and explained to the patient. Average apnea/hypopnea index (AHI) is 1.9. Patient used PAP > 4 hours 100% of the time. PAP is set at 16 cmH2O. PAP will remain at 16 cmH2O. Keep ramp start at 8 cmH2O. Keep ramp duration at 5 minutes. Keep EPR +1 ramp only. Keep humidifier level at automatic mode. Keep tube temperature at automatic mode. Oxygen supplementation: none Patient is benefiting from PAP therapy. Encouraged patient to maintain PAP use more than 70% of the time. Statement of PAP use and benefits will be sent to the home care store. Educated the patient on problems and solutions associated with positive airway pressure (PAP) use. Difficulty tolerating pressure, mask leaks, intolerance of interface, nasal congestion, claustrophobic response, dry mouth, and unintentional mask removal during sleep were covered. Patient experiences nasal congestion. Patient will use nasal saline spray before starting PAP, use heated PAP humidifier, clean/air dry humidifier reservoir daily, use nasal steroid spray, use ipratropium bromide nasal spray if rhinitis/rhinorrhe a is present or obtain an oronasal/oral interface. Dry mouth is a normal occurrence for people who just start out on PAP therapy because they are not used to air blowing in to the throat to hold open. Dry mouth is exacerbated for people who wear nasal PAP mask and whose jaw drops open during sleep. Not only does this create a much less efficient therapy because of leakage, it also causes dry mouth. There are a couple solutions to help prevent this type of problem. A simple solution would be to wear a chinstrap which essentially holds the jaw in place. A second solution would be a switch to a full face mask which covers both the nose and mouth. Although this is another easy solution, using a full face mask for some could seem claustrophobic or confining. There is no silver bullet solution as no single mask is right for everybody. Sometimes it takes a bit of experimentation to find a PAP mask which best meets the patient's needs as well as fits comfortably. Another tactic is to use a humidifier on your PAP machine. Most new PAP machines have integrated humidifiers. Humidification is valdez when dealing with symptoms of dry mouth because the humidifier can supply both warm and room temperate air. Even a small amount of humidity in the airflow will help nasal passages to stay hydrated. If a person is using both a full face mask and a PAP machine with a heated humidifier and is still experiencing dry mouth, an ill-fitted PAP mask might be causing the problem. Leakage can be caused by a mask that is to large or small, the wrong style mask, the cushion is degraded or simply because the mask's straps aren't adjusted correctly. If leakage occurs, dry air from the room can leak in while humidification escapes. The result is reduced humidification within the circuit and resulting in dry throat and mouth. Finally, beyond factors involving the PAP machine and mask, dry mouth can also be caused or worsened by dehydration. The general recommendation to during eight 8 oz. glasses of water a day might be too little for many people. When people drink large amounts of coffee or other caffeine beverages, or sweat a lot during the day, making sure to rehydrate is an important part of PAP therapy. Provided the patient with a list of local home care stores where positive airway pressure (PAP) units, accoutrement, and services are available. Home care store selection is based on patient's insurance carrier. Patient will setup an appointment with [facility] for supplies and pressure adjustments. A major predictor of success with use of PAP is follow-up with both the respiratory supplier and the treating physician. The download results can show the treating physician information about adherence to treatment, residual AHI while on treatment and presence of large mask leakage. This information is especially helpful if the patient has residual sleepiness despite treatment. General information on sleep disordered breathing, evaluation of sleep disordered breathing, treatment with PAP therapy, and living with PAP therapy were covered. We discussed with the patient the impact of weight on: Sleep disordered breathing Hypertension Hypertriglyceridem ia GERD Fatty liver Thoracic spondylosis Right calcaneal spur Right pes planus We discussed with the patient the benefit of PAP therapy on: Sleep disordered breathing Rhinitis Hypertension GERD ED Educated the patient on sleep hygiene measures. Relaxing rituals to rest easy, understanding foods with positive and negative impact on sleep, creating a peaceful sleep environment, timing of exercise, using herbal sleep aids, and practicing sleep-friendly meditation were covered. To determine how much sleep is needed, the patient will assess where he falls on the spectrum, examine what lifestyle factors such as work schedules and stress are affecting the quality and quantity of sleep. In general, adults need 7-9 hours of sleep. Educated the patient regarding foods that promote sleep. These include but are not limited to cherries, bananas, toast, oatmeal, and warm milk. Educated the patient regarding foods and drinks to avoid before bedtime. These include but are not limited to aged cheese, chocolate, spicy foods, tomato-based sauces, soy, ginseng tea and processed meat. Advocated influenza vaccination annually and pneumonia vaccination GIOVANNI. Advocated weight loss through diet and exercise. Patient's ideal body weight according to height and gender is up to 185 lbs. Encouraged patient to adjust caloric intake to maintain/achieve ideal body weight, emphasizing on fruits, vegetables, whole grains, and fat-free or low-fat products. These include lean meats, poultry, fish, beans, eggs, and nuts and foods that are low in saturated fats, trans-fats, cholesterol, salt (sodium), and glycemic index. Stressed the importance of regular exercise up to the patient's capacity limits. In this case, we recommend 20 min daily walking, 2 days a week of resistance training. Patient to monitor BP daily and bring records to PCP for further management. Follow-up: 1 year, March 2025 Not available 03/31/2024 10:03:45 Plan of Treatment Reminders Order Date Submit Date Provider Last Modified By Organization Details Last Modified Time Details Appointments Any 15 2024 09:00A Carlota Smith MD Not available Not available Not available Follow Up 2025 08:00A Carlota Brar MD Not available Not available Not available Lab PSA, serum or plasma 2024 025 [email or web address] [facility] (Lab), [address] [place], [address], 06/24/2024 09:46:00 [facility], serum or [facility] [address] [place], [address], 06/23/2024 18:52:55 unlisted lab - CBC study 2024 025 [email or web address] [facility] (Lab), [address] [place], [address], 06/24/2024 09:46:09 glycohemo globin, total, blood 2024 025 [facility] (Lab), [address] [place], [address], 03/10/2024 21:45:57 BMP, serum or plasma 2024 025 [facility] (Lab), [address] [place], [address], 03/10/2024 20:22:42 alpha-1-a ntitrypsi n (aat) phenotype , serum 2023 024 [facility] (Lab), [address] [place], [address], 02/25/2024 00:42:15 BNP (B-type natriuret ic peptide), serum or plasma 2023 024 [facility] (Lab), [address] [place], [address], 02/11/2024 11:45:01 ige, total, serum 2023 024 [facility] (Lab), [address] [place], [address], 04/02/2024 12:55:27 tb (M tuberculo sis), ifn-gamma lena, blood 2023 024 [facility] (Lab), [address] [place], [address], 04/02/2024 12:55:[address] 1+2+3+4, serum 2023 024 [facility] (Lab), [address] [place], [address], 04/02/2024 12:55:27 respirato ry allergen panel, [facility] A, serum 2023 024 [facility] (Lab), [address] [place], [address], 04/02/2024 12:55:27 respirato ry allergen panel - [facility] b 2023 024 [facility] (Lab), [address] [place], [address], 04/02/2024 12:55:28 Referral None recorded. Procedures None recorded. Surgeries None recorded. Imaging None recorded. Medication Orders Breo Ellipta 200 mcg-25 mcg/dose powder for inhalatio n 2024 025 [facility], [address] [place] [address], [id number], 03/31/2024 09:51:52 albuterol sulfate HFA 90 mcg/actua tion aerosol inhaler 2024 025 [facility], [address] [place] [address], [id number], 03/31/2024 09:51:53 Patient TargetsNo targets recorded. Patient Instructions Encounter Date Encounter Id Patient Instructions Last Modified By Organization Details Last Modified Time 11/05/2023 [id number] dementia rating scale-2* Not available 11/05/2023 16:51:32 depression screening* Not available 11/05/2023 16:51:32 alcohol misuse* Not available 11/05/2023 16:51:31 multi-dimensiona l health assessment questionnaire* [email or web address] Not available 11/05/2023 16:51:32 Personalized a lt Plan and Screening Recommendations Advance Directives - Do you have one? Advance Directives - Do we have your advance directive on file in your health record? Primary Prevention/Interven tion (prevents or decreases the chance of common diseases from occurring) Smoking Risk: Alcohol Misuse Screening: Weight: Physical activity: Nutrition: Fall Risk (screened today): Vaccines Pneumococcal: Influenza: Chronic Disease Risks Stroke: Active diagnosis, Continue current treatment plan Heart Attack: Active diagnosis, Continue current treatment plan Clogging of the Arteries: Active diagnosis, Continue current treatment plan Diabetes: Active diagnosis, Continue current treatment plan Secondary Prevention/Interven tion (detects treatable diseases before they may cause symptoms, disability, or ) Prostate Cancer Screening: Colon Cancer Screening: Date Screening Last Performed: Eye Disease Screening: Your next exam in: Dementia Risk: Depression Screening: Active diagnosis, Continue current treatment plan [email or web address] Not available 11/05/2023 12:46:08 02/11/2024 [id number] complete PFT w/ post bronchodilator spirometry* - Please call patient to schedule. [facility] [id number] w/ MCR. Not available 03/13/2024 08:45:32 03/31/2024 [id number] complete PFT w/ post bronchodilator spirometry* Not available 03/31/2024 09:51:46 Reason for Referral None Reported. Results Created Date Observation Date Name Description Value Unit Range Abnormal Flag Note LastModifiedBy Organization Detail LastModifiedTime 03/10/1903/10/2024 BASIC METAB OLIC PANEL sodium 137 mmol/ L 137-14 5 Not Available [facility] (Lab) [address] [place], [address], 03/10/2024 20:22:42 03/10/19 25 03/10/2024 BASIC METAB OLIC PANEL potassium 4.5 mmol/ L 3.5-5. 1 Not Available [facility] (Lab) [address] [place], [address], 03/10/2024 20:22:42 03/10/19 25 03/10/2024 BASIC METAB OLIC PANEL chloride 108 mmol/ L 98-107 high Not Available [facility] (Lab) [address] [place], [address], 03/10/2024 20:22:42 03/10/19 25 03/10/2024 BASIC METAB OLIC PANEL carbon dioxide 25 mmol/ L 22-30 Not Available [facility] (Lab) [address] [place], [address], 03/10/2024 20:22:42 03/10/19 25 03/10/2024 BASIC METAB OLIC PANEL anion gap 8.5 mmol/ L 14-22 low Not Available [facility] (Lab) [address] [place], [address], 03/10/2024 20:22:42 03/10/19 25 03/10/2024 BASIC METAB OLIC PANEL glucose 99 mg/dL 70-99 Not Available [facility] (Lab) [address] [place], [address], 03/10/2024 20:22:42 03/10/19 25 03/10/2024 BASIC METAB OLIC PANEL BUN 12 mg/dL 8-19 Not Available [facility] (Lab) [address] [place], [address], 03/10/2024 20:22:42 03/10/19 25 03/10/2024 BASIC METAB OLIC PANEL creatinine 0.78 mg/dL 0.66-1 .25 Not Available [facility] (Lab) [address] [place], [address], 03/10/2024 20:22:42 03/10/19 25 03/10/2024 BASIC METAB OLIC PANEL GFR >60 Refer ence Range : [place] ge GFR Healt hy Adult : >60 mL/mi n/1.7 3 m2 Chron ic Kidne y Disea se: 15-60 mL/mi n/1.7 3 m2 Kidne y Failu re: <15/m L/min /1.73 m2 [email or web address] nih.[email or web address] ov The MDRD study equat ion has not been valid ated in child maxx <18 years of age; pregn ant women ; the elder ly >85 years of age; or in some racia l or ethni c subgr oups, such as Hispa nics. Outsi de the valid ated jeni eters , estim ated GFR is less accur ate, requi ring clini romain judgm ent on a case- by-ca se basis . Clini romain inter preta tion for other races and ages must be made by the clini alina. The MDRD study equat ion has not been valid ated for the evalu ation of serum creat inine relat ed to nutri rafaela l statu s or medic ation usage . For perso ns <18 years of age, a pedia tric GFR calcu lator is avail able on the [facility] websi te: [email or web address] :[email or web address] rg/pr ofess ional s/kdo qi/gf r_cal culat or Not Available [facility] (Lab) [address] [place], [address], 03/10/2024 20:22:42 03/10/19 25 03/10/2024 BASIC METAB OLIC PANEL calcium 9.1 mg/dL 8.4-10 .2 Not Available [facility] (Lab) [address] [place], [address], 03/10/2024 20:22:42 03/10/19 25 03/10/2024 HEMOG LOBIN A1C HA1C 5.8 % 4.0-6. 0 Diabe kendall Scree ivette Crite brent: <5.7% Consi stent with absen ce of diabe kendall 5.7-6 .4% Consi stent with incre ased risk for diabe kendall (pred iabet es) >OR=6 .5% Consi stent with diabe kendall REFER ENCE: Diabe kendall Care 2016, 39(Kurtz ppl.1 ):s13 -s22 Not Available [facility] (Lab) [address] [place], [address], 03/10/2024 21:45:57 06/24/1906/23/2024 CBC W/O DIFFE RENTI AL white blood cells 5.8 x10'3 /uL 4.2-10 .8 Not Available [facility] (Lab) [address] [place], [address], 06/23/2024 18:50:09 06/24/1906/23/2024 CBC W/O DIFFE RENTI AL red blood cells 4.71 x10'6 /uL 4.10-5 .80 Not Available [facility] (Lab) [address] [place], [address], 06/23/2024 18:50:09 06/24/1906/23/2024 CBC W/O DIFFE RENTI AL hemoglobin 14.0 g/dL 13.2-1 7.0 Not Available [facility] (Lab) [address] [place], [address], 06/23/2024 18:50:09 06/24/1906/23/2024 CBC W/O DIFFE RENTI AL hematocrit 45.2 % 39.3-5 0.0 Not Available [facility] (Lab) [address] [place], [address], 06/23/2024 18:50:09 06/24/1906/23/2024 CBC W/O DIFFE RENTI AL mean red cell volume 96.0 fL 80.0-9 7.0 Not Available [facility] (Lab) [address] [place], [address], 06/23/2024 18:50:09 06/24/1906/23/2024 CBC W/O DIFFE RENTI AL mean red cell hemoglobin 29.7 pg 27.0-3 3.0 Not Available [facility] (Lab) [address] [place], [address], 06/23/2024 18:50:09 05/12/20 25 06/23/2024 CBC W/O DIFFE RENTI AL mean RBC HGB concentratio n 31.0 g/dL 31.0-3 6.0 Not Available [facility] (Lab) [address] [place], [address], 06/23/2024 18:50:09 06/24/19 25 06/23/2024 CBC W/O DIFFE RENTI AL red cell distribution width 13.7 % 11.8-1 5.5 Not Available [facility] (Lab) [address] [place], [address], 06/23/2024 18:50:09 06/24/19 25 06/23/2024 CBC W/O DIFFE RENTI AL platelets 278 x10'3 /uL 150-40 0 Not Available [facility] (Lab) [address] [place], [address], 06/23/2024 18:50:09 06/24/19 25 06/23/2024 CBC W/O DIFFE RENTI AL mean platelet volume 10.8 fL 9.0-12 .4 Not Available [facility] (Lab) [address] [place], [address], 06/23/2024 18:50:09 06/24/19 25 06/23/2024 COMPR EHENS EMILIANA METAB OLIC PANEL sodium 138 mmol/ L 137-14 5 Not Available [facility] (Lab) [address] [place], [address], 06/23/2024 18:53:21 06/24/19 25 06/23/2024 COMPR EHENS EMILIANA METAB OLIC PANEL potassium 4.6 mmol/ L 3.5-5. 1 Not Available [facility] (Lab) [address] [place], [address], 06/23/2024 18:53:21 06/24/19 25 06/23/2024 COMPR EHENS EMILIANA METAB OLIC PANEL chloride 103 mmol/ L 98-107 Not Available [facility] (Lab) [address] [place], [address], 06/23/2024 18:53:21 06/24/19 25 06/23/2024 COMPR EHENS EMILIANA METAB OLIC PANEL carbon dioxide 26 mmol/ L 22-30 Not Available [facility] (Lab) [address] [place], [address], 06/23/2024 18:53:21 06/24/19 25 06/23/2024 COMPR EHENS EMILIANA METAB OLIC PANEL anion gap 13.6 mmol/ L 14-22 low Not Available [facility] (Lab) [address] [place], [address], 06/23/2024 18:53:21 06/24/19 25 06/23/2024 COMPR EHENS EMILIANA METAB OLIC PANEL glucose 85 mg/dL 70-99 Not Available [facility] (Lab) [address] [place], [address], 06/23/2024 18:53:21 06/24/19 25 06/23/2024 COMPR EHENS EMILIANA METAB OLIC PANEL BUN 14 mg/dL 8-19 Not Available [facility] (Lab) [address] [place], [address], 06/23/2024 18:53:21 06/24/19 25 06/23/2024 COMPR EHENS EMILIANA METAB OLIC PANEL creatinine 0.85 mg/dL 0.66-1 .25 Not Available [facility] (Lab) [address] [place], [address], 06/23/2024 18:53:21 06/24/19 25 06/23/2024 COMPR EHENS EMILIANA METAB OLIC PANEL GFR >60 Refer ence Range : [place] ge GFR Healt hy Adult : >60 mL/mi n/1.7 3 m2 Chron ic Kidne y Disea se: 15-60 mL/mi n/1.7 3 m2 Kidne y Failu re: <15/m L/min /1.73 m2 www.n iddk. nih.g ov The MDRD study equat ion has not been valid ated in child maxx <18 years of age; pregn ant women ; the elder ly >85 years of age; or in some racia l or ethni c subgr oups, such as Hispa nics. Outsi de the valid ated jeni eters , estim ated GFR is less accur ate, requi ring clini romain judgm ent on a case- by-ca se basis . Clini romain inter preta tion for other races and ages must be made by the clini alina. The MDRD study equat ion has not been valid ated for the evalu ation of serum creat inine relat ed to nutri rafaela l statu s or medic ation usage . For perso ns <18 years of age, a pedia tric GFR calcu lator is avail able on the [facility] websi te: https :[email or web address] rg/pr ofess ional s/kdo qi/gf r_cal culat or Not Available [facility] (Lab) [address] [place], [address], 06/23/2024 18:53:21 06/24/19 25 06/23/2024 COMPR EHENS EMILIANA METAB OLIC PANEL alkaline phosphatase 86 U/L 38-126 Not Available [facility] (Lab) [address] [place], [address], 06/23/2024 18:53:21 06/24/19 25 06/23/2024 COMPR EHENS EMILIANA METAB OLIC PANEL alanine aminotransfe rase 26 U/L 0-50 Not Available [facility] (Lab) [address] [place], [address], 06/23/2024 18:53:21 06/24/19 25 06/23/2024 COMPR EHENS EMILIANA METAB OLIC PANEL aspartate aminotransfe rase 27 U/L 15-46 Not Available [facility] (Lab) [address] [place], [address], 06/23/2024 18:53:21 06/24/19 25 06/23/2024 COMPR EHENS EMILIANA METAB OLIC PANEL bilirubin, total 0.70 mg/dL 0.20-1 .30 Not Available [facility] (Lab) [address] [place], [address], 06/23/2024 18:53:21 06/24/19 25 06/23/2024 COMPR EHENS EMILIANA METAB OLIC PANEL calcium 9.3 mg/dL 8.4-10 .2 Not Available [facility] (Lab) [address] [place], [address], 06/23/2024 18:53:21 06/24/19 25 06/23/2024 COMPR EHENS EMILIANA METAB OLIC PANEL total protein 6.4 g/dL 6.3-8. 2 Not Available [facility] (Lab) [address] [place], [address], 06/23/2024 18:53:21 06/24/19 25 06/23/2024 COMPR EHENS EMILIANA METAB OLIC PANEL albumin 4.0 g/dL 3.0-4. 4 Not Available [facility] (Lab) [address] [place], [address], 06/23/2024 18:53:21 06/24/19 25 06/23/2024 COMPR EHENS EMILIANA METAB OLIC PANEL globulin 2.4 g/dL 2.6-4. 2 low Not Available [facility] (Lab) [address] [place], [address], 06/23/2024 18:53:21 06/24/19 25 06/23/2024 COMPR EHENS EMILIANA METAB OLIC PANEL A/G ratio 1.7 ratio 1.0-2. 0 Not Available [facility] (Lab) [address] [place], [address], 06/23/2024 18:53:21 06/24/19 25 06/23/2024 PSA SCREE N PSA medicare screen 1.12 NG/mL 0.00-4 .00 Not Available [facility] (Lab) [address] [place], [address], 06/23/2024 19:26:24 01/29/20 24 01/21/2024 CT, chest , w/ contr ast No observ ation record ed. BARCODE Not Available 2023 12:42:05 02/13/19 25 06/28/2018 polys omnog rebecca, titra tion study No observ ation record ed. BARCODE Not Available 2024 11:09:53 02/13/19 25 06/07/2018 home sleep study No observ ation record ed. BARCODE Not Available 2024 11:09:54 03/27/19 25 03/26/2024 compl ete PFT w/ post [facility] hodil ator consuelo metry * No observ ation record ed. BARCODE [facility] [address] [place], [address], 03/27/2024 10:50:35 Result Notes None recorded. Problems Name Problem SNOMED Code Status Onset Date Resolution Date Notes Provider Name and Address Organization Details Recorded Time Leukemia 82669463 Active 2022 Not Available [facility] 4 04:48:31 Calcaneal spur of right foot 92921162107 9100 Active 2022 Not Available [facility] 4 04:48:31 Congenita l pes planus 02328739 Active 2022 Not Available [facility] 4 04:48:31 Anemia 431502168 Active 2022 Not Available [facility] 4 04:48:31 Multiple benign melanocyt ic nevi 102656700 Active 2023 Brigette Smith MD [address] [facility], [facility] [address], [place], [address] , [facility] [employer] [facility] 4 11:16:34 Hemorrhoi ds 41057289 Active 2023 Zonia Boyce MA null, [facility] 4 11:01:04 Hyperglyc emia 87068387 Active 2024 Lianne howard RMAnna Marie null, [facility] 5 09:49:23 Severe chronic obstructi ve pulmonary disease 415136476 Active 2024 Asael Brar MD [address], [place], [address] , [facility] 5 09:46:28 Moderate chronic obstructi ve pulmonary disease 579150646 Active 2024 Asael Brar MD [address], [place], [address] , [facility] 5 09:49:30 Sleep apnea 08775325 Active 2024 Lianne howard RMA null, [facility] 5 09:59:20 Acute bronchiti s 65937382 Completed 202108/05/2021 Not Available [facility] 3 04:51:32 Impacted cerumen of bilateral ears 75290140516 19337 Completed 202112/29/2021 Asael Brar MD [address], [place], [address] , [facility] 4 18:27:27 Disorder of shoulder 693007981 Completed Not Available [facility] 3 04:51:33 Chronic obstructi ve pulmonary disease 53672970 Active 2017 Not Available [facility] 4 04:48:31 Hearing loss 86591654 Active 2019 Not Available [facility] 4 04:48:31 Body mass index 30+ - obesity 462591973 Active 2018 Not Available [facility] 4 04:48:31 Pneumonia 103202650 Completed 201902/27/2020 Not Available [facility] 3 04:51:33 Gastroeso phageal reflux disease 404369907 Active 2017 Not Available [facility] 4 04:48:31 Dyspnea 032842157 Completed 202202/28/2022 Not Available [facility] 3 04:51:33 Hypertrig lyceridem ia 166938379 Active 2019 Not Available [facility] 4 04:48:31 Recurrent dislocati on of shoulder region 99872341 Completed Not Available [facility] 3 04:51:34 Crohn's disease 52225073 Active 2017 Not Available [facility] 4 04:48:31 Dehydrati on 74361774 Completed Not Available [facility] 3 04:51:34 Obesity 259696555 Active 2017 Not Available [facility] 4 04:48:31 Solitary nodule of lung 244707435 Active 2019 Not Available [facility] 4 04:48:31 Screening colonosco py Completed 202108/05/2021 Not Available [facility] 3 04:51:35 Screening for malignant neoplasm of prostate Completed 202108/05/2021 Not Available [facility] 3 04:51:35 Anatoly de la Tourette' s syndrome 1384884 Completed 201710/12/2017 Not Available [facility] 3 04:51:35 Disorder of bursa of shoulder region 21638202 Completed Not Available [facility] 3 04:51:35 Essential hypertens ion 99204335 Active 2017 Not Available [facility] 4 04:48:31 Allergic rhinitis 59101694 Active 2019 Not Available [facility] 4 04:48:31 Sleep apnea 32069950 Completed 201706/25/2020 Lianne howard, SHERRIE null, [place] [facility] 5 09:59:20 Posterior rhinorrhe a 61749647 Active 2022 Not Available [facility] 4 04:48:31 Obstructi ve sleep apnea syndrome 17650426 Active 2018 Not Available [facility] 4 04:48:31 Erectile dysfuncti on 809125033 Active 2021 Not Available [facility] 4 04:48:31 Notes:Medical History: 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 R>L hearing loss/tinnitus COVID infection 06/2021 Rhinitis to dog and cat with postnasal drip IgE 170 IU/mL Eosinophils 110/uL Obesity with severe OSAHS, AHI = 35, 06/07/18, on CPAP c/o IVRC Hypertension Hypertriglyceridemia Bilateral gynecomastia AAT PiMM 160 mg% Severe COPD Left fissural pulm nodule Granulomas disease (chest, spleen) GERD Gastric polyps Fatty liver Crohn's disease AV malformations 2nd degree hemorrhoids Normocytic anemia ED Left rib fractures Thoracic spondylosis Right calcaneal spur Right pes planus Procedure History: RLL lobectomy 1967 Appendectomy 1997 Cholecystectomy 1998 EGD with polypectomy 2012 Colonoscopies 2021 Occupational History: 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 Procedures Surgical History Date Name Laterality Status Provider Name and Address Organization Details Recorded Time 03/10/19 Medicare Wellness CPT Code, subsequent completed SHERRIE Gordon [employer] 03/10/2024 09:49:11 11/05/19 24 Medicare Wellness CPT Code, subsequent completed Briana Ott RN [employer] 11/05/2023 12:46:09 07/08/19 23 Medicare Wellness CPT Code, subsequent completed Antonella Gonzalez RN [facility] [employer] 07/07/2022 10:44:16 07/08/19 23 Advanced Care Planning completed Antonella Gonzalez RN [facility] [employer] 07/07/2022 10:47:22 02/12/19 10 fixation of mandible completed Not Available [facility] 04/12/2022 04:42:31 02/12/19 10 Foot Surgery completed Not Available [facility] 023 04:42:31 02/12/19 01 Appendectomy completed Not Available [facility] 023 04:42:31 02/12/19 00 Gallbladder Surgery completed Not Available [facility] 04/12/2022 04:42:31 02/12/18 68 Lung Surgery completed Not Available [facility] 023 04:42:31 02/12/18 67 Hernia Surgery completed Not Available [facility] 04/12 04:42:31 Hand completed Ciara Malone MA [employer] [facility] [employer] 02/11/2024 08:32:24 Shoulder completed Ciara Malone MA [email or web address] 02/11/2024 08:32:34 Imaging Results None recorded. Procedure Notes None recorded. Medical Equipment None Reported. Allergies Allergen ID Allergen Name Allergen Category Reaction Reaction Severity Criticality Documentation Date Start Date Code Code System Note Provider Name and Address Organization Details Recorded Time 7848 Claritin medicatio n swelling Not available Not available 04/12/202219904 6 RxNorm Asael Brar MD [address], [address] [facility] [employer] 09:42:26 Medications Name Sig Start Date Stop Date Status Note LastModified by Organization Details LastModified Time amoxicill in 500 mg capsule TAKE 1 CAPSULE BY MOUTH THREE TIMES DAILY FOR 7 DAYS 01/14 completed Not Available Not Available Not Available doxycycli ne hyclate 100 mg capsule TAKE 1 CAPSULE BY MOUTH TWICE DAILY WITH FOOD UNTIL GONE 01/28 completed Not Available Not Available Not Available lisinopri l 20 mg tablet Take 1 tablet every day by oral route for 90 days. 07/27 completed increase to 40mg Not Available Not Available Not Available prednison e 20 mg tablet TAKE 2 TABLETS BY MOUTH ONCE DAILY FOR 5 DAYS 01/28 completed Not Available Not Available Not Available Zithromax Z-Yoni 250 mg tablet TAKE 2 TABLETS (500 MG) BY ORAL ROUTE ONCE DAILY FOR 1 DAY THEN 1 TABLET (250 MG) BY ORAL ROUTE ONCE DAILY FOR 4 DAYS 01/28 completed per 01/24/24 patient case / ds Not Available Not Available Not Available peg-elect rolyte solution 420 gram oral solution TAKE 1/2 AT 5 PM ON 05/05, THEN TAKE OTHER 1/2 AT 5 AM ON 05/06 completed Not Available Not Available Not Available paroxetin e 20 mg tablet TAKE 1 TABLET BY MOUTH ONCE DAILY IN THE MORNING active Not Available Not Available No t Available pantopraz ole 40 mg tablet,de layed release Take 1 tablet every day by oral route as needed. 10/25 completed Not Available Not Available Not Available oseltamiv ir 75 mg capsule TAKE ONE CAPSULE TWICE DAILY FOR 5 DAYS UNTIL ALL TAKEN 07/31 completed Not Available Not Available Not Available Gentle Laxative (bisacody l) 5 mg tablet,de layed release TAKE ALL 6 TABLETS BY MOUTH AT 8 AM ON 05/05 completed Not Available Not Available Not Available Advair Diskus 250 mcg-50 mcg/dose powder for inhalatio n Inhale 1 inhalati on twice a day by inhalati on route for 90 days. 07/27 completed Not Available Not Available Not Available diclofena c sodium 75 mg tablet,de layed release TAKE 1 TABLET BY MOUTH TWICE DAILY NEEDED 02/10 completed Not Available Not Available Not Available monteluka st 10 mg tablet TAKE 1 TABLET BY MOUTH ONCE DAILY active Not Available Not Available No t Available azelastin e 137 mcg (0.1 %) nasal spray USE 2 SPRAY(S) IN EACH NOSTRIL TWICE DAILY DIRECTED FOR 30 DAYS 01/23 completed Not Available Not Available Not Available levofloxa susan 500 mg tablet Take 1 tablet every 24 hours by oral route. 03/21 completed Not Available Not Available Not Available methylpre dnisolone 4 mg tablets in a dose pack take as directed on the package 02/06 completed Not Available Not Available Not Available paroxetin e 40 mg tablet TAKE 1 TABLET BY MOUTH ONCE DAILY active Not Available Not Available No t Available lisinopri l 40 mg tablet Take 1 tablet by mouth once daily 2024 active Not Available Not Available Not Avai lable cefdinir 300 mg capsule TAKE ONE CAPSULE TWICE DAILY UNTIL ALL TAKEN 07/31 completed Not Available Not Available Not Available fluticaso ne propionat e 50 mcg/actua tion nasal spray,elie pension USE 2 SPRAY(S) IN EACH NOSTRIL ONCE DAILY 02/10 completed Not Available Not Available Not Available risperido ne 0.5 mg tablet 11/03 completed Not Available Not Available Not Available Ventolin HFA 90 mcg/actua tion aerosol inhaler INHALE 1 PUFF BY MOUTH EVERY 4 HOURS NEEDED active Not Available Not Available No t Available azithromy susan 500 mg tablet TAKE ONE TABLET DAILY UNTIL ALL TAKEN 04/11 completed Not Available Not Available Not Available tadalafil 10 mg tablet Take 1 tablet every day by oral route as needed. 2024 active Not Available Not Available Not Avai lable tadalafil 20 mg tablet TAKE 1 TABLET BY MOUTH ONCE DAILY NEEDED 01/23 completed Not Available Not Available Not Available Prilosec 05/31 completed Not Available Not Available Not Available Prilosec OTC QD 07/31 completed Not Available Not Available Not Available aripipraz ole 2 mg tablet TAKE 1 TABLET BY MOUTH ONCE DAILY 01/23 completed Not Available Not Available Not Available Breo Ellipta 100 mcg-25 mcg/dose powder for inhalatio n Inhale 1 puff every day by inhalati on route. 11/30 completed Not Available Not Available Not Available Incruse Ellipta 62.5 mcg/actua tion powder for inhalatio n Inhale 1 puff every day by inhalati on route. active Not Available Not Available No t Available Breo Ellipta 200 mcg-25 mcg/dose powder for inhalatio n INHALE 1 PUFF BY MOUTH ONCE DAILY active Not Available Not Available No t Available Procto-Me d HC 2.5 % topical cream perineal applicato r APPLY CREAM RECTALLY TO AFFECTED AREA THREE TIMES DAILY 02/06 completed Not Available Not Available Not Available Fluvirin 45 mcg (15 mcg x 3)/0.5 mL intramusc ular suspensio n ADM 0.5ML IM UTD 07/27 completed Not Available Not Available Not Available Trelegy Ellipta 100 mcg-62.5 mcg-25 mcg powder for inhalatio n INHALE 1 PUFF BY MOUTH EVERY DAY DIRECTED active Not Available Not Available No t Available Afluria Quad (PF) 60 mcg (15 mcg x 4)/0.5 mL IM syringe active Not Available Not Available Not Available Vitals Date Recorded Body height Body mass index (BMI) Body weight Body temperature Heart rate Oxygen saturation Oxygen saturation in Arterial blood by Pulse oximetry Systolic blood pressure Diastolic blood pressure Provider Name and Address Organization Details Last Updated DateTime 5 180.34 cm 42.5 kg/m2 011598. 67 g 96.6 [degF] 69 /min 94 % 94 % 130 mm[Hg] 80 mm[Hg] SHERRIE Paniagua [facility] [employer] [facility] 5 09:55:16 Date Recorded Heart rate Heart rate Respiratory rate Provider Name and Address Organization Details Last Updated DateTime 03/31/2024 61 /min 61 /min 14 /min Asael Brar MD [address] [place] [address], [address], [facility] [employer] 03/31/2024 09:55:02 Date Recorded Body height Body mass index (BMI) Body weight Body temperature Oxygen saturation Oxygen saturation in Arterial blood by Pulse oximetry Systolic blood pressure Diastolic blood pressure Provider Name and Address Organization Details Last Updated DateTime 5 180.34 cm 42.8 kg/m2 920174. 42 g 98.3 [degF] 98 % 98 % 142 mm[Hg] 74 mm[Hg] Ciara Malone MA [facility] [employer] [facility] 5 09:15:46 Date Recorded Body height Body mass index (BMI) Body weight Body temperature Heart rate Oxygen saturation Oxygen saturation in Arterial blood by Pulse oximetry Systolic blood pressure Diastolic blood pressure Provider Name and Address Organization Details Last Updated DateTime 5 180.34 cm 41.7 kg/m2 241779. 12 g 97.4 [degF] 66 /min 95 % 95 % 132 mm[Hg] 80 mm[Hg] SHERRIE Paniagua [facility] [employer] [facility] 5 09:58:23 Date Recorded Body height Body mass index (BMI) Body weight Body temperature Heart rate Oxygen saturation Oxygen saturation in Arterial blood by Pulse oximetry Systolic blood pressure Diastolic blood pressure Provider Name and Address Organization Details Last Updated DateTime 4 180.34 cm 41.6 kg/m2 174368. 53 g 97.3 [degF] 78 /min 96 % 96 % 124 mm[Hg] 70 mm[Hg] SHERRIE Paniagua [employer] 4 10:14:07 Date Recorded Oxygen saturation Oxygen saturation in Arterial blood by Pulse oximetry Heart rate Respiratory rate Provider Name and Address Organization Details Last Updated DateTime 02/11/2024 95 % 95 % 88 /min 15 /min Asael Brar MD [address] [facility] [address], [place], [address], [employer] 4 09:17:56 Date Recorded Body height Body mass index (BMI) Body weight Body temperature Heart rate Systolic blood pressure Diastolic blood pressure Provider Name and Address Organization Details Last Updated DateTime 180.34 cm 41.6 kg/m2 403208. 68 g 97.9 [degF] 88 /min 128 mm[Hg] 76 mm[Hg] Ciara Malone MA [employer] 4 08:29:24 Social History Question Answer Notes LastModified by Organization Details LastModified Time Tobacco Smoking Status Never Smoker Not Available [facility] 04/12/2022 04:21:19 Do You Have An Advance Directive? No [id number] Information not available 04/12/2022 How Many Years Have You Consumed Alcohol? 47 [email or web address] Information not available 11/05/2023 Is Blood Transfusion Acceptable In An Emergency? Yes [email or web address] Information not available 11/05/2023 What Is Your Level Of Caffeine Consumption? Moderate [id number] Information not available 04/12/2022 How Much Tobacco Do You Chew? None [id number] Information not available 04/12/2022 In The 14 Days Before Symptom Onset, Have You Had Close Contact With A Laboratory-conf irmed COVID-19 While That Case Was Ill? No Not Applicable Information not available 02/11/2024 In The 14 Days Before Symptom Onset, Have You Had Close Contact With A Person Who Is Under Investigation For COVID-19 While That Person Was Ill? No Not Applicable Information not available 02/11/2024 What Type Of Diet Are You Following? REGULAR [id number] Information not available 04/12/2022 Which Illicit Or Recreational Drugs Have You Used? None [id number] Information not available 04/12/2022 What Is The Highest Grade Or Level Of School You Have Completed Or The Highest Degree You Have Received? [id number] [email or web address] Information not available 11/05/2023 Do You Have An Electrostatic Air Filter? No [id number] Information not available 04/12/2022 How Many Days Of Moderate To Strenuous Exercise, Like A Brisk Walk, Did You Do In The Last 7 Days? 0 [email or web address] Information not available 11/05/2023 Have There Been Any Changes To Your Family Or Social Situation? Yes Family Member Moved Long Distance [email or web address] Information not available 11/05/2023 What Is The Fluoride Status Of Your Home? Fluoridated [id number] Information not available 04/12/2022 Are There Any Guns Present In Your Home? Yes [email or web address] Information not available 11/05/2023 Do You Have A Humidifier? No MIGRATION.030 [id number] Information not available 04/12/2022 Do You Use Insect Repellent Routinely? No [email or web address] Information not available 11/05/2023 Where Do You Live? [place] [id number] Information not available 04/12/2022 Presence Of Domestic Violence No [email or web address] Information not available 11/05/2023 Are You Able To Care For Yourself? Yes [email or web address] Information not available 07/07/2022 Are You Blind Or Do Yo Have Difficulty Seeing? No [email or web address] Information not available 07/07/2022 Are You Deaf Or Do You Have Serious Difficulty Hearing? Yes Does Not Have Hearing Aids, States Cannot Afford. Information not available 07/07/2022 General Stress Level? Moderate [email or web address] Information not available 07/07/2022 Live Alone Of With Others? With Others [email or web address] Information not available 07/07/2022 Do You Have A Medical Power Of Parachute Supervisor? No [email or web address] Information not available 11/05/2023 Do You Have Moisture Problems In Your Home? No MIGRATION.0301 [id number] Information not available 04/12/2022 What Was The Date Of Your Most Recent Tobacco Screening? 03/31/2024 Information not available 03/31/2024 How Many Children Do You Have? 2 MIGRATION.0301 [id number] Information not available 04/12/2022 Have You Ever Been Counseled For Unhealthy Alcohol Use? No [email or web address] Information not available 11/05/2023 Do You Have Any Pets? Yes MIGRATION.0301 [id number] Information not available 04/12/2022 Do You Use Protection During Sex? No [email or web address] Information not available 11/05/2023 What Is Your Relationship Status? [email or web address] Information not available 07/07/2022 Do You Use Your Seat Belt Or Car Seat Routinely? No MIGRATION.0301 [id number] Information not available 04/12/2022 Are You Sexually Active? Yes [email or web address] Information not available 11/05/2023 Do You Have Smoke And Carbon Monoxide Detectors In Your Home? Yes MIGRATION.0301 [id number] Information not available 04/12/2022 Are You Passively Exposed To Smoke? No [email or web address]

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
--- OUTSIDE RECORDS SUMMARY | 2024-07-30 15:43 | XMS_ITS | Clinical Summary ---
Author Organization [facility] Address [address] [place] [address] [place] [address] Care Team Providers Care Spinner Fixer Name Role Phone Grady Snow MD Primary Care Provider Allergies Active Allergy Reactions Criticality Noted Date Comments Loratadine Other (See Comments),Swelling Low 2014 Medications fluticasone furoate-vilante roL (BREO ELLIPTA) 200-25 mcg/dose Disk with Device fluticasone furoate 200 mcg-vilanterol 25 mcg/dose inhalation powder Active Ventolin HFA 90 mcg/actuation inhaler 3 Active ARIPiprazole (ABILIFY) 2 mg tablet aripiprazole 2 mg tablet TAKE 1 TABLET BY MOUTH ONCE DAILY Active lisinopriL (PRINIVIL) 40 mg tablet lisinopril 40 mg tablet Active PARoxetine HCl (PAXIL) 20 mg tablet paroxetine 20 mg tablet 3 Active montelukast (SINGULAIR) 10 mg tablet Take 10 mg by mouth daily at bedtime. Active Active Problems No known active problems Family History Medical History Relation Name Comments No Known Problems Daughter 1 No Known Problems Daughter 2 Heart Disease Father Lung Cancer Father No Known Problems Mother Alcohol abuse Sister Relation Name Status Comments Daughter 1 Alive Daughter 2 Alive Father Mother Alive Sister Alive Social History Tobacco Use Types Packs/Day Years Used Date Smoking Tobacco: Never Smokeless Tobacco: Never Tobacco Cessation:Counseling Given: Not Answered Alcohol Use Standard Drinks/Week Comments Yes 2 (1 standard drink = 0.6 oz pur e alcohol) Sex and Gender Information Value Date Recorded Sex Assigned at Not on file Legal Sex Male 10:22 AM USER EXPERIENCE RESEARCHER Gender Identity Not on file Sexual Orientation Not on file Last Filed Vital Signs Vital Sign Reading Time Taken Comments Blood Pressure 117/69 01/28/2024 12:07 PM USER EXPERIENCE RESEARCHER Pulse 62 01/28/2024 12:07 PM USER EXPERIENCE RESEARCHER Temperature 36.8 C (98.2 F) 01/28/2024 12:07 PM USER EXPERIENCE RESEARCHER Respiratory Rate 15 01/28/2024 12:07 PM USER EXPERIENCE RESEARCHER Oxygen Saturation 93% 01/28/2024 12:07 PM USER EXPERIENCE RESEARCHER Inhaled Oxygen Concentration - - Weight 135.2 kg (298 lb) 01/28/2024 12:07 PM USER EXPERIENCE RESEARCHER Height 180.3 cm (5' 11) 03/15/2022 4:02 PM USER EXPERIENCE RESEARCHER Body Mass Index 41.56 03/15/2022 4:02 PM USER EXPERIENCE RESEARCHER Plan of Treatment Upcoming Encounters Date Type Department Care Team (Late st Contact Info) Description 08/01/2024 8:30 AM CDT Office Visit [facility] Oncology and Hematology [facility] [address] [facility] [address] [place] [address] Drew Singer MD [address] [facility] [address] [place] [address] Health Maintenance Due Date Last Done Comments Pre-Diabetes and Diabetes Screening 1960 Traditional Medicare (ACO) A nnual Wellness Visit 1978 FIT-DNA Q 3 years 01/06/2004 FIT/FOBT Q 1 year 01/06/2004 Flex Sig/CT Colonography Q 5 years 01/06/2004 ZOSTER VACCINE (1 of 2) 2009 PNEUMOCOCCAL VACCINE 50+ YEA RS (2 of 2 - PPSV23) 03/09/2015 01/12/2015 RSV VACCINE (60+ or ) (1 - Risk 60-74 years 1-dose series) 2019 INFLUENZA VACCINE (#1) 2023 , 02/27/2020, 12/06/2017, Additional history exists DTAP/TDAP/TD VACCINES (2 - T d or Tdap) 11/04/2024 11/04/2014 COLORECTAL SCREENING 05/07/2031 05/06/2021 Colorectal Cancer Screening 05/07/2031 Insurance MEDICARE PART A [facility] Care Teams Spinner Fixer Relationship Specialty Start Date End Date Grady Snow MD [address] [phone] PCP - General Internal Medicine 03/15/22
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
--- OUTSIDE RECORDS SUMMARY | 2024-07-30 15:43 | XMS_ITS | Continuity of Care Document ---
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 [address] , [address], [place], [address], [place]. tel:[phone] Family History Family Member Type Diagnosis Age At Onset No Information Payers Payer name Insurance type Covered alliance party ID Authoriza tion(s) Medicaid [facility] [id number] Social History Type Description Quantity Date Captured Comments Sex Male Smoking Status No Information Chief Complaint And Reason For Visit No Information Reason For Referral Reason For Referral No Information History Of Present Illness Encounter Date Complaint History Of Prese nt Illness No Information Functional Status Date Functional Assessmen t No Information Instructions Date Instruction Additional Infor mation No Information Assessments Type Assessment Date No Information Patient Care Teams Name Effective Dates (start - stop) Status Members No Information
[2024-07-30 16:56] LABS: Anion Gap 6 mmol/L (4-12); Blood Urea Nitrogen 20 mg/dL (9-20); Calcium 9.1 mg/dL (8.4-10.2); Carbon Dioxide 22 mmol/L (22-30); Chloride 110 mmol/L (98-107); Estimated Glomerular Filt Rate > 60; Glucose 115 mg/dL (65-110); Iron 61 ug/dL (49-181); Potassium 5.1 mmol/L (3.4-5.0); Sodium 138 mmol/L (137-145)
[2024-07-30 17:04] LABS: Percent Iron Saturation 20 % (20-50)
[2024-07-30 18:11] LABS: Folic Acid 13.6 ng/mL (2.76->20)
== END 2024-07-30 13:57 | disposition home or self-care (01) ==
LOC: ANHLAB 13:57
PROVIDERS: PCP Internal Medicine; Visit Provider Internal Medicine Hematology & Oncology
DX: D64.9 Anemia, unspecified (principal)
CPT/HCPCS: 36415; 80048; 82607; 82728; 82746; 83540; 83550; 85025

== ENCOUNTER 2025-01-20 07:46 | Outpatient (CLI) | payer MEDICARE, OTHER, SELFPAY ==
--- NOTE | ~2025-01-20 | CT_ITS ---
EXAMINATION:CT diagnostic chest w con DATE: 01/20/2025 08:13 INDICATION: Lung nodule TECHNIQUE: Computed tomography (CT) of the chest was performed with intravenous contrast. The dose-length product (DLP) was 835.72 mGy-cm. COMPARISON: January 21, 2024 FINDINGS: 7 mm left major fissure pleural nodule image 72 series 4 stable. Small area of consolidation in the left upper lobe has resolved. Surgical changes right hemithorax, with what appears to be right lower lobe lobectomy stable. Heart and great vessels within normal limits and stable. Central large airways are patent. No new nodules or masses. Old left-sided rib fractures stable. Bones extra thoracic soft tissues and visualized portions of the upper abdomen with no focal acute process. Cholecystectomy clips noted. IMPRESSION: Stable radiographically benign lung nodule. Interval resolution of small area of consolidation left upper lobe. Other findings as above. Signed report Reviewed, dictated and finalized at location A. [facility] DRILLER IMPRESSION: Stable radiographically benign lung nodule. Interval resolution of small area of consolidation left upper lobe. Other findings as above. Signed re port
[2025-01-20 08:09] LABS: Estimated Glomerular Filt Rate > 60
== END 2025-01-20 07:47 | disposition home or self-care (01) ==
PROVIDERS: PCP Internal Medicine; Visit Provider Internal Medicine Hematology & Oncology
DX: R91.1 Solitary pulmonary nodule (principal)
CPT/HCPCS: 71260; Q9967

== ENCOUNTER 2025-01-20 08:26 | Outpatient (CLI) | payer MEDICARE, OTHER, SELFPAY ==
[2025-01-20 08:45] LABS: Hematocrit 42.3 % (42.0-52.0); Hemoglobin 13.4 g/dL (14.0-18.0); Mean Corpuscular HGB Conc 31.7 g/dl (32-36); Mean Corpuscular Hemoglobin 29.7 pg (26-34); Mean Corpuscular Volume 93.8 fl (80-100); Platelet Count Result 279 k/mm3 (150-375); Red Blood Count 4.51 M/mm3 (4.6-6.20); White Blood Count 6.1 K/mm3 (4.5-10.0)
[2025-01-20 12:39] LABS: Anion Gap 5 mmol/L (4-12); Blood Urea Nitrogen 17 mg/dL (9-20); Calcium 9.3 mg/dL (8.4-10.2); Carbon Dioxide 27 mmol/L (22-30); Chloride 107 mmol/L (98-107); Estimated Glomerular Filt Rate > 60; Glucose 101 mg/dL (65-110); Iron 77 ug/dL (49-181); Potassium 5.3 mmol/L (3.4-5.0); Sodium 139 mmol/L (137-145)
[2025-01-20 12:52] LABS: Percent Iron Saturation 28 % (20-50)
[2025-01-20 13:23] LABS: Ferritin 68.80 ng/mL (11.1-264)
[2025-01-20 13:50] LABS: Vitamin B12 859.0 pg/mL (239-931)
== END 2025-01-20 08:27 | disposition home or self-care (01) ==
LOC: ANHLAB 08:27
PROVIDERS: PCP Internal Medicine; Visit Provider Internal Medicine Hematology & Oncology
DX: D64.9 Anemia, unspecified (principal)
CPT/HCPCS: 36415; 80048; 82607; 82728; 82746; 83540; 83550; 85027